=== PATIENT | female | born 1970 | race Caucasian/White ===

== ENCOUNTER 2018-02-04 03:04 | Emergency (ER) | payer SELFPAY ==
[~2018-02-04] VITALS: Ht 162.5 cm; Wt 72.6 kg
[~2018-02-04 03:04] MED LIST: CIPRO250 MG PO; MOTRIN800 MG PO; PYRIDIUM200 MG PO; VICODIN 5/500 505 MG PO
[2018-02-04] MEDS ORDERED: ATIVAN1 MG PO (03:32)
[2018-03-07] MEDS ORDERED: CIPRO500 MG PO (09:48)
== END 2018-02-04 04:22 | disposition home or self-care (01) ==
LOC: ED 03:04
DX: F41.1 Generalized anxiety disorder (principal); Z88.0 Allergy status to penicillin

== ENCOUNTER 2024-08-12 00:40 | Inpatient (IN) | payer SELFPAY ==
[~2024-08-12] VITALS: Ht 157.4 cm; Wt 78.9 kg
[2024-08-12] VITALS (12 sets, daily range): BP systolic 110–177; BP diastolic 56–96
[~2024-08-12 00:40] MED LIST changes: +ATIVAN1 MG PO; +CIPRO500 MG PO
[2024-08-12] MEDS ORDERED: Ondansetron Hydrochloride 4 MG TAB SL ONE (01:35)
[2024-08-12] MEDS ORDERED: Acetaminophen/Hydrocodone 5 MG/325 MG TABLET PO ONE (01:35)
[2024-08-12] MEDS ORDERED: HYDROmorphONE Hydrochloride 0.5 MG/0.5 ML SYRINGE IV ONE ×2 (03:05→06:35)
[2024-08-12] MEDS ORDERED: HYDROmorphONE Hydrochloride 1 MG/ML SYR IV ONE (08:05)
[2024-08-12] MEDS ORDERED: ACETAMINOPHEN 650 MG SUPP R PRN (08:30)
[2024-08-12] MEDS ORDERED: BISACODYL 5 MG TAB PO PRN (08:30)
[2024-08-12] MEDS ORDERED: ACETAMINOPHEN 325 MG TAB PO PRN (08:30)
[2024-08-12] MEDS ORDERED: BISACODYL 10 MG SUPP R PRN (08:30)
[2024-08-12] MEDS ORDERED: Ondansetron Hydrochloride 4 MG/2 ML VIAL IV PRN (08:30)
[2024-08-12] MEDS ORDERED: MORPHINE Sulfate 2 MG/ML SYR IV PRN (08:30)
[2024-08-12] MEDS ORDERED: Acetaminophen/Hydrocodone 5 MG/325 MG TABLET PO PRN (08:35)
[2024-08-12] MEDS ORDERED: Ondansetron Hydrochloride 4 MG/2 ML VIAL IV ONE (12:33)
[2024-08-12] MEDS ORDERED: Lidocaine Hydrochloride 5 ML VIAL IV ONE (12:33)
[2024-08-12] MEDS ORDERED: SEVOFLURANE 250 ML BOT INH ONE (12:33)
[2024-08-12] MEDS ORDERED: fentaNYL CITRATE 100 MCG/2 ML VIAL IV ONE (12:33)
[2024-08-12] MEDS ORDERED: Dexamethasone Sodium Phospha 4 MG/ML VIAL IV ONE (12:33)
[2024-08-12] MEDS ORDERED: DEXMEDETOMIDINE HCL 200 MCG/2 ML VIAL IV ONE (12:33)
[2024-08-12] MEDS ORDERED: Midazolam Hydrochloride 2 MG/2 ML VIAL IV ONE (12:33)
[2024-08-12] MEDS ORDERED: PROPOFOL 200 MG/20 ML VIAL IV ONE (12:33)
[2024-08-12] MEDS ORDERED: Clindamycin Phosphate 50 ML IV ONE ×2 (12:50→15:09)
[2024-08-12] MEDS ORDERED: TRANEXAMIC ACID IN NACL,ISO-OS 100 ML IV ONE ×2 (12:50→15:08)
[2024-08-12] MEDS ORDERED: MORPHINE Sulfate 2 MG/ML SYR IV ONE (13:30)
[2024-08-12] MEDS ORDERED: Lactated Ringer's Solution 1,000 ML IV ONE ×2 (14:40→17:36)
[2024-08-12] MEDS ORDERED: BUPIVACAINE 0.5% 0 ML IV ONE (14:42)
[2024-08-12] MEDS ORDERED: ACETAMINOPHEN 100 ML IV ONE (14:53)
[2024-08-12] MEDS ORDERED: Ropivacaine Hydrochloride 5 MG/ML 20 ML AMP IJ ONE (14:53)
[2024-08-12] MEDS ORDERED: ASPIRIN ENTERIC COATED 81 MG TAB PO SCH (18:00)
[2024-08-12] MEDS ORDERED: HYDROmorphONE Hydrochloride 0.5 MG/0.5 ML SYRINGE IV PRN (19:45)
[2024-08-12] MEDS ORDERED: HYDROmorphONE Hydrochloride 0.5 MG/0.5 ML SYRINGE ONE (20:03)
[2024-08-12] MEDS ORDERED: Clindamycin Phosphate 50 ML IV SCH (22:00)
[2024-08-13] VITALS: BP 129/82
[2024-08-13 05:33] LABS: ALKALINE PHOSPHATASE 79 U/L (46-116); BUN 8 mg/dl (9-23); CHLORIDE 103 mmol/L (98-107); CHOLESTEROL 232 mg/dL (<200); LDL CHOLESTEROL 150 mg/dL (9-159); POTASSIUM 3.8 mmol/L (3.4-5.1); SGPT/ALT 14 U/L (5-49); TOTAL PROTEIN 6.8 gm/dL (6.0-8.0); TRIGLYCERIDES 102 mg/dl (<150)
[2024-08-13 06:14] LABS: BASO % 0.1 % (0.0-1.0); HEMATOCRIT 36.1 % (37.0-47.0); MEAN CELL VOLUME 87.6 fl (81.0-99.0); MEAN CORPUSCULAR HGB 28.6 pg (27.0-31.0); MEAN CORPUSCULAR HGB CONC 32.7 g/dl (33.0-37.0); MEAN PLATELET VOLUME 11.9 fl (9.6-12.3); MONO # 0.7 10*3/uL (0.1-1.0); MONO % 6.9 % (3.0-9.0); NEUT # 7.6 10*3/uL (2.3-7.9); NEUT % 79.8 % (47.0-73.0); PLATELET COUNT AUTOMATED 221 10*3/uL (130-400); RED BLOOD COUNT 4.12 10*6/uL (4.10-5.10); RED CELL DISTRI WIDTH 12.6 % (0-14.5); WHITE BLOOD COUNT 9.5 10*3/uL (4.8-10.8)
[2024-08-13 08:00] VITALS: BP 160/95
[2024-08-13] MEDS ORDERED: Cholecalciferol 2,000 UNIT TABLET (50 MCG) PO SCH (10:00)
[2024-08-13 12:00] VITALS: BP 147/82
[2024-08-13 16:00] VITALS: BP 122/62
[2024-08-13] MEDS ORDERED: ACETAMINOPHEN 100 ML IV SCH (18:00)
[2024-08-13 20:00] VITALS: BP 147/82
[2024-08-14] VITALS: BP 132/66
[2024-08-14 07:09] LABS: BASO % 0.2 % (0.0-1.0); EOS % 0.2 % (1.0-4.0); HEMATOCRIT 33.9 % (37.0-47.0); MEAN CELL VOLUME 87.1 fl (81.0-99.0); MEAN CORPUSCULAR HGB 28.8 pg (27.0-31.0); MEAN PLATELET VOLUME 11.3 fl (9.6-12.3); MONO # 0.9 10*3/uL (0.1-1.0); MONO % 10.5 % (3.0-9.0); NEUT # 5.5 10*3/uL (2.3-7.9); NEUT % 62.7 % (47.0-73.0); PLATELET COUNT AUTOMATED 181 10*3/uL (130-400); RED BLOOD COUNT 3.89 10*6/uL (4.10-5.10); RED CELL DISTRI WIDTH 12.8 % (0-14.5); WHITE BLOOD COUNT 8.8 10*3/uL (4.8-10.8)
[2024-08-14 07:50] LABS: BUN 7 mg/dl (9-23); CHLORIDE 103 mmol/L (98-107); POTASSIUM 3.4 mmol/L (3.4-5.1)
[2024-08-14 08:00] VITALS: BP 139/76
[2024-08-14] MEDS ORDERED: Enoxaparin Sodium 40 MG/0.4 ML SYR SC SCH (10:00)
[2024-08-14 12:00] VITALS: BP 111/69
[2024-08-14] MEDS ORDERED: OXYCODONE HCL (IR) 5 MG TAB PO PRN (12:25)
[2024-08-14 16:00] VITALS: BP 129/73
[2024-08-14] MEDS ORDERED: Magnesium Hydroxide 30 ML UDC PO PRN (17:05)
[2024-08-14 20:00] VITALS: BP 110/62
[2024-08-15] VITALS: BP 123/70
[2024-08-15 06:24] LABS: BASO % 0.4 % (0.0-1.0); EOS # 0.1 10*3/uL (0.0-0.4); EOS % 1.1 % (1.0-4.0); HEMATOCRIT 35.1 % (37.0-47.0); MEAN CELL VOLUME 87.8 fl (81.0-99.0); MEAN CORPUSCULAR HGB 28.3 pg (27.0-31.0); MEAN CORPUSCULAR HGB CONC 32.2 g/dl (33.0-37.0); MEAN PLATELET VOLUME 11.8 fl (9.6-12.3); MONO # 0.7 10*3/uL (0.1-1.0); MONO % 8.9 % (3.0-9.0); NEUT # 4.8 10*3/uL (2.3-7.9); NEUT % 58.8 % (47.0-73.0); PLATELET COUNT AUTOMATED 200 10*3/uL (130-400); RED CELL DISTRI WIDTH 12.9 % (0-14.5); WHITE BLOOD COUNT 8.1 10*3/uL (4.8-10.8)
[2024-08-15 07:27] LABS: BUN 8 mg/dl (9-23); CHLORIDE 104 mmol/L (98-107); POTASSIUM 3.8 mmol/L (3.4-5.1)
[2024-08-15 08:00] VITALS: BP 136/80
[2024-08-15] MEDS ORDERED: Polyethylene Glycol 3350 17 GM PACKET PO SCH (10:00)
[2024-08-15 12:00] VITALS: BP 132/81
[2024-08-15] MEDS ORDERED: FOAM BANDAGE HEEL T ONE (13:06)
[2024-08-15] MEDS ORDERED: HEEL PROTECTOR DEVICE ONE (13:06)
[2024-08-15 16:00] VITALS: BP 136/82
[2024-08-15 20:00] VITALS: BP 144/76
[2024-08-16] VITALS: BP 134/81
[2024-08-16 06:22] LABS: BASO % 0.4 % (0.0-1.0); EOS # 0.1 10*3/uL (0.0-0.4); HEMATOCRIT 35.1 % (37.0-47.0); MEAN CELL VOLUME 88.4 fl (81.0-99.0); MEAN CORPUSCULAR HGB 28.2 pg (27.0-31.0); MEAN CORPUSCULAR HGB CONC 31.9 g/dl (33.0-37.0); MEAN PLATELET VOLUME 11.4 fl (9.6-12.3); MONO # 0.6 10*3/uL (0.1-1.0); MONO % 7.7 % (3.0-9.0); NEUT # 4.4 10*3/uL (2.3-7.9); NEUT % 52.7 % (47.0-73.0); PLATELET COUNT AUTOMATED 220 10*3/uL (130-400); RED BLOOD COUNT 3.97 10*6/uL (4.10-5.10); RED CELL DISTRI WIDTH 12.8 % (0-14.5); WHITE BLOOD COUNT 8.3 10*3/uL (4.8-10.8)
[2024-08-16 07:09] LABS: BUN 8 mg/dl (9-23); CHLORIDE 102 mmol/L (98-107); POTASSIUM 4.1 mmol/L (3.4-5.1)
[2024-08-16 08:00] VITALS: BP 126/72
[2024-08-16 11:44] VITALS: BP 135/61
[2024-08-16] MEDS ORDERED: PERCOCET 5-3251 EACH PO (14:58)
[2024-08-16] MEDS ORDERED: VITAMIN D3125 MC1 PO (14:58)
[2024-08-16] MEDS ORDERED: ASPIRIN ADULT L81 M2 PO (14:58)
[2024-08-16 16:00] VITALS: BP 127/74
== END 2024-08-16 17:45 | disposition home or self-care (01) | DRG 494 ==
LOC: ED 00:40 → EDHOLD 07:52 → 4E 07:52
PROVIDERS: Orthopaedic Surgery; Registered Nurse; Student in an Organized Health Care Education/Training Program; ADMIT Internal Medicine; ATTEND Internal Medicine
PROC: 0QSH04Z Reposition Left Tibia with Internal Fixation Device, Open Approach (ICD-10-PCS; principal; 2024-08-12)
PROC: 3E0T3BZ Introduction of Anesthetic Agent into Peripheral Nerves and Plexi, Percutaneous Approach (ICD-10-PCS; 2024-08-12)
DX: S82.142A Displaced bicondylar fracture of left tibia, initial encounter for closed fracture (principal); F17.210 Nicotine dependence, cigarettes, uncomplicated; D64.9 Anemia, unspecified; R73.9 Hyperglycemia, unspecified; Z88.0 Allergy status to penicillin; F41.9 Anxiety disorder, unspecified; Z98.51 Tubal ligation status; Z83.3 Family history of diabetes mellitus; Z81.8 Family history of other mental and behavioral disorders; W18.30XA Fall on same level, unspecified, initial encounter; Y93.89 Activity, other specified; Y92.89 Other specified places as the place of occurrence of the external cause; Y99.8 Other external cause status

== ENCOUNTER → 2024-08-26 | Outpatient (CLI) | payer SELFPAY ==
[~2024-08-26] MED LIST changes: +ASPIRIN ADULT L81 M2 PO; +PERCOCET 5-3251 EACH PO; +VITAMIN D3125 MC1 PO
== END | disposition home or self-care (01) ==
LOC: ORTHO 01:02
PROVIDERS: ATTEND Orthopaedic Surgery
DX: S82.142D Displaced bicondylar fracture of left tibia, subsequent encounter for closed fracture with routine healing (principal); X58.XXXD Exposure to other specified factors, subsequent encounter

== ENCOUNTER → 2024-09-26 | Outpatient (CLI) | payer SELFPAY | END | disposition home or self-care (01) | LOC: ORTHO 01:00 | PROVIDERS: ATTEND Orthopaedic Surgery | DX: S82.142D Displaced bicondylar fracture of left tibia, subsequent encounter for closed fracture with routine healing (principal); M17.12 Unilateral primary osteoarthritis, left knee; X58.XXXD Exposure to other specified factors, subsequent encounter ==

== ENCOUNTER → 2024-10-19 | Outpatient (CLI) | payer SELFPAY | END | disposition home or self-care (01) | LOC: ORTHO 03:05 | PROVIDERS: ATTEND Orthopaedic Surgery | DX: S82.142D Displaced bicondylar fracture of left tibia, subsequent encounter for closed fracture with routine healing (principal); M17.12 Unilateral primary osteoarthritis, left knee; M25.862 Other specified joint disorders, left knee; X58.XXXD Exposure to other specified factors, subsequent encounter ==

== ENCOUNTER 2024-11-05 13:00 | Emergency (ER) | payer SELFPAY ==
[~2024-11-05] VITALS: Ht 157.4 cm; Wt 77.1 kg
[2024-11-05 14:15] LABS: BASO % 0.5 % (0.0-1.0); EOS # 0.2 10*3/uL (0.0-0.4); EOS % 2.4 % (1.0-4.0); HEMATOCRIT 41.7 % (37.0-47.0); MEAN CELL VOLUME 85.5 fl (81.0-99.0); MEAN CORPUSCULAR HGB 28.1 pg (27.0-31.0); MEAN CORPUSCULAR HGB CONC 32.9 g/dl (33.0-37.0); MEAN PLATELET VOLUME 11.5 fl (9.6-12.3); MONO # 0.6 10*3/uL (0.1-1.0); MONO % 6.7 % (3.0-9.0); NEUT # 4.8 10*3/uL (2.3-7.9); NEUT % 56.9 % (47.0-73.0); PLATELET COUNT AUTOMATED 267 10*3/uL (130-400); RED BLOOD COUNT 4.88 10*6/uL (4.10-5.10); RED CELL DISTRI WIDTH 13.4 % (0-14.5); WHITE BLOOD COUNT 8.4 10*3/uL (4.8-10.8)
[2024-11-05 14:45] LABS: BUN 12 mg/dl (9-23); CHLORIDE 104 mmol/L (98-107); POTASSIUM 3.6 mmol/L (3.4-5.1)
[2024-11-05] MEDS ORDERED: CLINDAMYCIN HC300 MG PO (14:53)
== END 2024-11-05 15:24 | disposition home or self-care (01) ==
LOC: ED 13:00
PROVIDERS: Physician Assistant Medical
DX: T81.41XA Infection following a procedure, superficial incisional surgical site, initial encounter (principal); L08.9 Local infection of the skin and subcutaneous tissue, unspecified; F17.210 Nicotine dependence, cigarettes, uncomplicated; Z88.0 Allergy status to penicillin; Z79.82 Long term (current) use of aspirin; Z79.899 Other long term (current) drug therapy; Y83.8 Other surgical procedures as the cause of abnormal reaction of the patient, or of later complication, without mention of misadventure at the time of the procedure; Y92.89 Other specified places as the place of occurrence of the external cause

== ENCOUNTER → 2024-11-14 | Outpatient (CLI) | payer SELFPAY ==
[~2024-11-14] MED LIST changes: +CLINDAMYCIN HC300 MG PO
== END | disposition home or self-care (01) ==
LOC: ORTHO 04:51
PROVIDERS: ATTEND Orthopaedic Surgery
DX: S82.142D Displaced bicondylar fracture of left tibia, subsequent encounter for closed fracture with routine healing (principal); S82.092D Other fracture of left patella, subsequent encounter for closed fracture with routine healing; X58.XXXD Exposure to other specified factors, subsequent encounter

== ENCOUNTER 2024-11-30 14:03 | Inpatient (IN) | payer SELFPAY ==
[~2024-11-30] VITALS: Ht 157.5 cm; Wt 77.6 kg
[2024-11-30 14:20] VITALS: BP 143/99
[2024-11-30] MEDS ORDERED: ACETAMINOPHEN 650 MG SUPP R PRN (15:05)
[2024-11-30] MEDS ORDERED: BISACODYL 10 MG SUPP R PRN (15:05)
[2024-11-30] MEDS ORDERED: Acetaminophen/Hydrocodone 5 MG/325 MG TABLET PO PRN (15:05)
[2024-11-30] MEDS ORDERED: Magnesium Hydroxide 30 ML UDC PO PRN (15:05)
[2024-11-30] MEDS ORDERED: BISACODYL 5 MG TAB PO PRN (15:05)
[2024-11-30] MEDS ORDERED: ACETAMINOPHEN 325 MG TAB PO PRN (15:05)
[2024-11-30 15:26] LABS: BASO % 0.4 % (0.0-1.0); EOS # 0.1 10*3/uL (0.0-0.4); EOS % 1.4 % (1.0-4.0); HEMATOCRIT 43.3 % (37.0-47.0); MEAN CORPUSCULAR HGB 27.8 pg (27.0-31.0); MEAN CORPUSCULAR HGB CONC 33.5 g/dl (33.0-37.0); MEAN PLATELET VOLUME 11.1 fl (9.6-12.3); MONO # 0.5 10*3/uL (0.1-1.0); MONO % 6.4 % (3.0-9.0); NEUT # 4.7 10*3/uL (2.3-7.9); NEUT % 57.2 % (47.0-73.0); PLATELET COUNT AUTOMATED 325 10*3/uL (130-400); RED BLOOD COUNT 5.22 10*6/uL (4.10-5.10); RED CELL DISTRI WIDTH 13.2 % (0-14.5); WHITE BLOOD COUNT 8.1 10*3/uL (4.8-10.8)
[2024-11-30 15:56] LABS: ALKALINE PHOSPHATASE 114 U/L (46-116); BUN 10 mg/dl (9-23); CHLORIDE 101 mmol/L (98-107); POTASSIUM 3.7 mmol/L (3.4-5.1); SGPT/ALT 13 U/L (5-49)
[2024-11-30 16:00] VITALS: BP 160/56
[2024-11-30] MEDS ORDERED: Cefepime Hydrochloride 2 GM in SODIUM CHLORIDE 0.9% 50 ML IV SCH (16:00)
[2024-11-30] MEDS ORDERED: Vancomycin Hydrochloride 1,000 MG in SODIUM CHLORIDE 0.9% 250 ML IV SCH (18:00)
[2024-11-30 20:00] VITALS: BP 122/67
[2024-12-01] VITALS (8 sets, daily range): BP systolic 102–136; BP diastolic 64–84
[2024-12-01 06:47] LABS: BASO % 0.3 % (0.0-1.0); EOS # 0.1 10*3/uL (0.0-0.4); HEMATOCRIT 39.7 % (37.0-47.0); MEAN CORPUSCULAR HGB 27.8 pg (27.0-31.0); MEAN CORPUSCULAR HGB CONC 32.7 g/dl (33.0-37.0); MEAN PLATELET VOLUME 11.1 fl (9.6-12.3); MONO # 0.4 10*3/uL (0.1-1.0); MONO % 7.2 % (3.0-9.0); NEUT # 3.2 10*3/uL (2.3-7.9); NEUT % 53.8 % (47.0-73.0); PLATELET COUNT AUTOMATED 254 10*3/uL (130-400); RED BLOOD COUNT 4.67 10*6/uL (4.10-5.10); RED CELL DISTRI WIDTH 13.5 % (0-14.5)
[2024-12-01 07:53] LABS: BUN 10 mg/dl (9-23); CHLORIDE 104 mmol/L (98-107); POTASSIUM 3.8 mmol/L (3.4-5.1)
[2024-12-01 11:26] LABS: FREE T4 1.27 ng/dl (0.89-1.76)
[2024-12-01 11:47] LABS: VITAMIN D, 25-HYDROXY 37.6 ng/mL (30-100)
[2024-12-01] MEDS ORDERED: ACETAMINOPHEN 100 ML IV ONE (14:46)
[2024-12-01] MEDS ORDERED: Lactated Ringer's Solution 1,000 ML IV ONE (14:46)
[2024-12-01] MEDS ORDERED: Bupivacaine Hydrochloride/Ep2 30 ML VIAL ONE (15:05)
[2024-12-01] MEDS ORDERED: PROPOFOL 200 MG/20 ML VIAL IV ONE (17:15)
[2024-12-01] MEDS ORDERED: Midazolam Hydrochloride 2 MG/2 ML VIAL IV ONE (17:15)
[2024-12-01] MEDS ORDERED: fentaNYL CITRATE 100 MCG/2 ML VIAL IV ONE (17:15)
[2024-12-01] MEDS ORDERED: Lidocaine Hydrochloride 5 ML VIAL IV ONE (17:15)
[2024-12-01] MEDS ORDERED: Phenylephrine Hydrochloride 1 MG/10 ML SYRINGE IV ONE (17:15)
[2024-12-01] MEDS ORDERED: ePHEDrine Sulfate 25 MG/5 ML SYRINGE IV ONE (17:15)
[2024-12-01] MEDS ORDERED: SEVOFLURANE 250 ML BOT INH ONE (17:15)
[2024-12-01] MEDS ORDERED: Acetaminophen/Hydrocodone 5 MG/325 MG TABLET ONE (17:26)
[2024-12-02] VITALS: BP 125/73
[2024-12-02 05:48] LABS: BUN 8 mg/dl (9-23); CHLORIDE 104 mmol/L (98-107); POTASSIUM 4.1 mmol/L (3.4-5.1)
[2024-12-02 06:15] LABS: BASO % 0.2 % (0.0-1.0); HEMATOCRIT 39.1 % (37.0-47.0); MEAN CELL VOLUME 82.3 fl (81.0-99.0); MEAN CORPUSCULAR HGB 27.8 pg (27.0-31.0); MEAN CORPUSCULAR HGB CONC 33.8 g/dl (33.0-37.0); MEAN PLATELET VOLUME 11.6 fl (9.6-12.3); MONO # 0.1 10*3/uL (0.1-1.0); MONO % 2.3 % (3.0-9.0); NEUT # 3.7 10*3/uL (2.3-7.9); NEUT % 72.4 % (47.0-73.0); PLATELET COUNT AUTOMATED 321 10*3/uL (130-400); RED BLOOD COUNT 4.75 10*6/uL (4.10-5.10); RED CELL DISTRI WIDTH 13.3 % (0-14.5); WHITE BLOOD COUNT 5.2 10*3/uL (4.8-10.8)
[2024-12-02 08:00] VITALS: BP 136/75
[2024-12-02 12:00] VITALS: BP 112/73
[2024-12-02 12:07] LABS: ACID FAST SPEC PROCESSING Tissue Grinding (.)
[2024-12-02] MEDS ORDERED: VANCOMYCIN HCL 1,250 MG in SODIUM CHLORIDE 0.9% 250 ML IV SCH (14:00)
[2024-12-02 16:00] VITALS: BP 116/77
[2024-12-02 20:00] VITALS: BP 130/68
[2024-12-03] VITALS: BP 111/66
[2024-12-03 06:25] LABS: BASO % 0.5 % (0.0-1.0); EOS # 0.1 10*3/uL (0.0-0.4); EOS % 1.5 % (1.0-4.0); HEMATOCRIT 35.9 % (37.0-47.0); MEAN CORPUSCULAR HGB 28.1 pg (27.0-31.0); MEAN CORPUSCULAR HGB CONC 32.6 g/dl (33.0-37.0); MEAN PLATELET VOLUME 11.4 fl (9.6-12.3); MONO # 0.5 10*3/uL (0.1-1.0); MONO % 6.8 % (3.0-9.0); NEUT # 3.5 10*3/uL (2.3-7.9); NEUT % 45.3 % (47.0-73.0); PLATELET COUNT AUTOMATED 243 10*3/uL (130-400); RED BLOOD COUNT 4.16 10*6/uL (4.10-5.10); RED CELL DISTRI WIDTH 13.6 % (0-14.5); WHITE BLOOD COUNT 7.8 10*3/uL (4.8-10.8)
[2024-12-03 06:28] LABS: MEAN CELL VOLUME 86.3 fl (81.0-99.0)
[2024-12-03 08:00] VITALS: BP 140/78
[2024-12-03 12:00] VITALS: BP 140/88
[2024-12-03 16:00] VITALS: BP 118/78
[2024-12-03 20:00] VITALS: BP 139/98
[2024-12-03] MEDS ORDERED: Vancomycin Hydrochloride 1,000 MG in SODIUM CHLORIDE 0.9% 250 ML IV SCH (22:00)
[2024-12-04] VITALS: BP 130/71
[2024-12-04 06:28] LABS: BASO # 0.1 10*3/uL (0.0-0.1); BASO % 0.8 % (0.0-1.0); EOS # 0.3 10*3/uL (0.0-0.4); EOS % 4.6 % (1.0-4.0); HEMATOCRIT 38.3 % (37.0-47.0); MEAN CELL VOLUME 85.1 fl (81.0-99.0); MEAN CORPUSCULAR HGB CONC 32.9 g/dl (33.0-37.0); MEAN PLATELET VOLUME 11.5 fl (9.6-12.3); MONO # 0.6 10*3/uL (0.1-1.0); MONO % 8.1 % (3.0-9.0); NEUT # 3.1 10*3/uL (2.3-7.9); PLATELET COUNT AUTOMATED 245 10*3/uL (130-400); RED CELL DISTRI WIDTH 13.7 % (0-14.5); WHITE BLOOD COUNT 7.4 10*3/uL (4.8-10.8)
[2024-12-04 08:00] VITALS: BP 129/86
[2024-12-04] MEDS ORDERED: Ketorolac Tromethamine 15 MG/ML VIAL IV ONE (10:05)
[2024-12-04 12:00] VITALS: BP 143/79
[2024-12-04] MEDS ORDERED: Ketorolac Tromethamine 15 MG/ML VIAL IV PRN (14:00)
[2024-12-04 16:00] VITALS: BP 149/90
[2024-12-04 20:00] VITALS: BP 131/83
[2024-12-04] MEDS ORDERED: NYSTATIN 15 GM BOT T SCH (22:00)
[2024-12-05] VITALS: BP 125/59
[2024-12-05 06:47] LABS: BASO # 0.1 10*3/uL (0.0-0.1); BASO % 0.9 % (0.0-1.0); EOS # 0.3 10*3/uL (0.0-0.4); EOS % 5.1 % (1.0-4.0); HEMATOCRIT 36.5 % (37.0-47.0); MEAN CELL VOLUME 84.7 fl (81.0-99.0); MEAN CORPUSCULAR HGB 28.1 pg (27.0-31.0); MEAN CORPUSCULAR HGB CONC 33.2 g/dl (33.0-37.0); MEAN PLATELET VOLUME 11.5 fl (9.6-12.3); MONO # 0.5 10*3/uL (0.1-1.0); MONO % 8.3 % (3.0-9.0); NEUT # 3.4 10*3/uL (2.3-7.9); NEUT % 51.8 % (47.0-73.0); PLATELET COUNT AUTOMATED 220 10*3/uL (130-400); RED BLOOD COUNT 4.31 10*6/uL (4.10-5.10); RED CELL DISTRI WIDTH 13.3 % (0-14.5); WHITE BLOOD COUNT 6.5 10*3/uL (4.8-10.8)
[2024-12-05 07:01] LABS: BUN 10 mg/dl (9-23); CHLORIDE 105 mmol/L (98-107); POTASSIUM 3.9 mmol/L (3.4-5.1)
[2024-12-05 08:00] VITALS: BP 163/94
[2024-12-05] MEDS ORDERED: DOXYCYCLINE HY100 M3 PO (11:47)
[2024-12-05 12:00] VITALS: BP 156/97
[2024-12-05 16:00] VITALS: BP 153/88
== END 2024-12-05 19:22 | disposition home or self-care (01) | DRG 857 ==
LOC: 5E 14:03
PROVIDERS: Orthopaedic Surgery; Student in an Organized Health Care Education/Training Program; ADMIT Family Medicine; ATTEND Family Medicine
PROC: 0JBP0ZZ Excision of Left Lower Leg Subcutaneous Tissue and Fascia, Open Approach (ICD-10-PCS; principal; 2024-12-01)
DX: T81.49XA Infection following a procedure, other surgical site, initial encounter (principal); L03.116 Cellulitis of left lower limb; M86.262 Subacute osteomyelitis, left tibia and fibula; E66.9 Obesity, unspecified; R79.82 Elevated C-reactive protein (CRP); F41.9 Anxiety disorder, unspecified; Z87.891 Personal history of nicotine dependence; Z81.8 Family history of other mental and behavioral disorders; Z88.0 Allergy status to penicillin; Z79.82 Long term (current) use of aspirin; Z68.31 Body mass index [BMI] 31.0-31.9, adult; Y65.8 Other specified misadventures during surgical and medical care; Y92.89 Other specified places as the place of occurrence of the external cause